=== PATIENT | male | born 1965 | race Caucasian/White ===

== ENCOUNTER 2017-06-11 11:17 | Observation (INO) | payer BC ==
[~2017-06-11] VITALS: Ht 177.8 cm; Wt 122.5 kg
--- NOTE | ~2017-06-11 | HP ---
History And Physical [facility] [address] [place]. [address] NAME: AGUSTIN CONTRERAS : 61 STATUS : ADM Isaías PAT#: [id number] AGE: 51 ADM/REG DATE : 06/11/17 MR#: [id number] REPORT SERV DATE: 06/11/17 DICTATED BY: SUNSHINE SALCIDO DATE: 06/11/17 REPORT STATUS : Draft TRANSCRIBED BY: MODL DATE: 06/11/17 DATE OF ADMISSION: 06/11/2017 PRIMARY CARE PHYSICIAN: Dr. Eb Bearden. PRIMARY MUSEUM EXHIBIT TECHNICIAN: Dr. Edvin Bernard. CHIEF COMPLAINT: Chest pain. HISTORY OF PRESENT ILLNESS: This is a very pleasant 51-year-old male with history of Sumner disease, obstructive sleep apnea, hypothyroidism, chronic kidney disease, Adrian syndrome, GERD, and hyperlipidemia, who states onset of chest pain last evening. He describes having some abdominal cramping and diarrhea and then later in the evening developing some very brief spasmodic-like chest pain to the mid chest. These occurred several times over the course of the evening. He describes them as very brief, lasting seconds, with no accompanying nausea, diaphoresis, or shortness of breath. There were no associated palpitations or dizziness. This morning when the chest pain recurred and then kept happening, he went to his primary care physician and they advised him to come to our emergency department for further evaluation. He has received a full-dose aspirin and is being admitted to chest pain observation. Currently he is chest pain-free but during the interview he states another spasmodic chest pain occurring. The patient denies personal history for IL, DVT, CVA, or PE. Denies any recent fever, cough, or chills. Occasional edema to the lower extremities. He is currently on an antibiotic for a sinus infection. MEDICAL HISTORY: 1. Obstructive sleep apnea, noncompliant with CPAP therapy. 2. Hypothyroidism. 3. GERD. 4. Mixed hyperlipidemia. 5. Sumner disease, status post adrenalectomy. 6. Adrian syndrome. 7. Low testosterone. 8. CKD 3, followed by Dr. Edvin Bernard. SURGICAL HISTORY: 1. Tonsillectomy. 2. LASIK eye surgery. 3. Adrenalectomy. 4. Pituitary tumor removed x2. HOME MEDICATIONS: Florinef 0.1 mg p.o. daily. Protonix 40 daily. Synthroid 112 mcg daily. Pravastatin 10 daily. Doxycycline 100 mg p.o. b.i.d. x14 days. Vitamin D 1000 units daily. Hydrocortisone 5 mg daily. Aspirin enteric-coated 81 mg daily. Testosterone injection 1 dose IM every 14 days. Hydrocortisone 40 to 60 mg twice a day as needed. Compound nasal History And Physical [facility] [address] [place]. [address] NAME: AGUSTIN CONTRERAS : 61 STATUS : ADM Isaías PAT#: [id number] AGE: 51 ADM/REG DATE : 06/11/17 MR#: [id number] REPORT SERV DATE: 06/11/17 DICTATED BY: SUNSHINE SALCIDO DATE: 06/11/17 REPORT STATUS : Draft TRANSCRIBED BY: SENTHLI DATE: 06/11/17 spray b.i.d. Protonix 40 mg every evening p.r.n. indigestion. ALLERGIES: NO KNOWN DRUG ALLERGIES. SOCIAL HISTORY: The patient is , at bedside. He is a business class 1 owner operator. He denies history of smoking or illicit drug use. Consumes perhaps 2 alcoholic beverages per week. FAMILY HISTORY: Negative for premature cardiovascular disease among his first-degree relatives. REVIEW OF SYSTEMS: Negative except as indicated above. PHYSICAL EXAMINATION: VITAL SIGNS: Blood pressure 135/83, heart rate 87, temperature 97.2, and pulse oximetry 97% on room air. GENERAL: Well developed, well nourished, in no acute distress HEENT: Anicteric. Normal EOM. Head normocephalic. PERRLA, no xanthelasma. NECK: Supple. No JVD. Carotids normal without bruits. LUNGS: Clear to auscultation bilaterally anterior and posterior. Respirations even and unlabored. CARDIAC: S1, S2 regular rate and rhythm. No murmurs, rubs, or gallops. No chest wall tenderness. ABDOMEN: Normal bowel sounds. Soft and nontender to palpation. No masses or organomegaly. EXTREMITIES: No peripheral edema. DP/PT and radial pulses palpable bilaterally. No clubbing or cyanosis. SKIN: Warm and dry. Normal turgor. No pallor or cyanosis. MUSCULOSKELETAL: Moving all extremities x4. Normal muscle strength. NEURO/PSYCH: Alert and oriented with appropriate affect. LABORATORY DATA: Sodium 136, potassium 4.0, BUN 16, creatinine 1.6 with baseline on record 1.5 to 1.9. White blood count 11.7, hemoglobin 14.3, and hematocrit 46.0. Troponin less than 0.02. Chest x-ray shows no acute cardiopulmonary abnormalities. EKG interpreted by myself indicates normal sinus rhythm with no ischemic changes. ASSESSMENT AND PLAN: 1. Midsternal chest pain in this 51-year-old male with cardiovascular risk factors of hyperlipidemia. His initial presentation is negative for acute coronary syndrome and his chest pains are somewhat atypical. We will plan to admit him to the chest pain observation unit and monitor on telemetry in the event that his symptoms are being produced by PVCs. Also plan for serial cardiac enzymes and if these remain negative, proceed with a nuclear stress test in the morning. If stress testing low risk, we will discharge home with followup with his primary care physician scheduled in the next one to two weeks. If no ischemia on stress testing, question whether the patient is having some gastritis related to the doxycycline that he is on. 2. Mixed hyperlipidemia. On statin therapy. We will continue. 3. Sumner disease, well-maintained and follows up with aviation maintenance technician, both locally as History And Physical [address] [address] NAME: AGUSTIN CONTRERAS : 61 STATUS : ADM Isaías PAT#: [id number] AGE: 51 ADM/REG DATE : 06/11/17 MR#: [id number] REPORT SERV DATE: 06/11/17 DICTATED BY: SUNSHINE SALCIDO DATE: 06/11/17 REPORT STATUS : Draft TRANSCRIBED BY: SENTHIL DATE: 06/11/17 well as at [place]. Continue home steroid doses. 4. Obstructive sleep apnea, noncompliant with CPAP therapy as the patient finds the mask very uncomfortable. I have counseled the patient to resume CPAP use to decrease cardiovascular risks. FOREST/SENTHIL Sunshine Salcido NP / [id number] CC: Abbey Elam, MSN, [employer] SEWER-BC
[~2017-06-11 11:17] MED LIST: ACIPHEX PO; ASAB PO; CITRUCEL500 MG PO; CORTEF20 MG PO; CORTEF5 PO; CRESTOR5 MG PO; DEPO-TESTOS200 MG/ML SC; DHE1 OR; FLORINEF0.1 MG PO; LEVOTHYROXIN112 MCG PO; LEVOTHYROXIN125 MCG PO; LEVOXYL100 MCG PO; MULTIPLE VIT PO; NEXIUM40 PO; P1 PO; PRAV10 PO; PRIN5 PO; PROTONIX PO; TESTOST CYP100 MG/ML IM; VITAMIN D31000 UNIT PO; [UNRECOGNIZED DRUG - OTHER] PO; [UNRECOGNIZED DRUG - OTHER] SQ
[2017-06-11 11:52] LABS: BASOPHILS 0.2 %; BASOPHILS ABSOLUTE 0.02 10/3/uL (0.0-0.16); EOSINOPHILS 0.1 %; EOSINOPHILS ABSOLUTE 0.01 10/3/uL (0.0-0.53); HEMOGLOBIN 14.3 g/dL (13.6-17.8); IMMATURE GRANULOCYTES 0.3 %; IMMATURE GRANULOCYTES ABSOLUTE 0.03 10/3/uL (0.0-0.11); LYMPHOCYTES 10.6 %; LYMPHOCYTES ABSOLUTE 1.25 10/3/uL (0.67-4.30); MEAN CORPUS HGB CONC 31.1 g/dL (32.0-36.0); MONOCYTES 8.9 %; MONOCYTES ABSOLUTE 1.04 10/3/uL (0.21-1.20); NEUTROPHILS 79.9 %; NEUTROPHILS ABSOLUTE 9.39 10/3/uL (2.02-8.40); PLATELET COUNT 282 10/3/uL (150-400); RBC DISTRIBUTION WIDTH 18.2 % (12.0-16.0); RED CELL COUNT 6.22 10/6/uL (4.7-6.1)
[2017-06-11 11:53] LABS: ER CBC TAT 0 Hrs 05 Mins; MANUAL DIFF NO %; WHITE BLOOD CELLS 11.7 10/3/uL (4.5-10.5)
[2017-06-11 12:01] LABS: INTERNATIONAL NORMAL RATI 1.1 UNITS (-); PARTIAL THROMBO TIME 28.1 SEC (22.5-37.2)
[2017-06-11 12:08] LABS: BUN (BLOOD UREA NITROGEN) 16 MG/DL (6-23); CHEST PAIN PROFILE TAT 0 Hrs 20 Mins; CHLORIDE, SERUM 100 MMOL/L (96-112); CO2 (CARBON DIOXIDE) 29 MMOL/L (24-34); CREATININE 1.66 MG/DL (0.70-1.30); GFR AFRICAN AMERICAN 54 ML/MIN (>=60); GFR NON AFRICAN AMERICAN 46 ML/MIN (>=60); GLUCOSE, SERUM 127 MG/DL (60-99); SODIUM, SERUM 136 MMOL/L (135-148); TROPONIN I <0.02 NG/ML (<0.05)
[2017-06-11 12:09] LABS: CALCIUM, SERUM 10.5 MG/DL (8.5-10.4)
[2017-06-11] MEDS ORDERED: PROTONIX PO ×2 (15:45→15:59)
[2017-06-11] MEDS ORDERED: FLORINEF0.1 MG PO (15:45)
[2017-06-11] MEDS ORDERED: PRAV10 PO (15:46)
[2017-06-11] MEDS ORDERED: SYN112 PO (15:46)
[2017-06-11] MEDS ORDERED: VITAMIN D1000 UNI1 PO (15:47)
[2017-06-11] MEDS ORDERED: MONODOX100 MG PO (15:47)
[2017-06-11] MEDS ORDERED: CORTEF5 PO (15:48)
[2017-06-11] MEDS ORDERED: TESTOSTERONE INJECT IM (15:50)
[2017-06-11] MEDS ORDERED: HALF81 PO (15:50)
[2017-06-11] MEDS ORDERED: CORTEF20 MG PO (15:53)
[2017-06-11] MEDS ORDERED: COMPOUND NAS (15:55)
== END 2017-06-12 12:54 | disposition home or self-care (01) ==
LOC: ER 11:17 → CDU1 15:50 → CDU2 15:50
PROVIDERS: Hospitalist
DX: R07.2 Precordial pain (principal); E78.2 Mixed hyperlipidemia; G47.33 Obstructive sleep apnea (adult) (pediatric); E03.9 Hypothyroidism, unspecified; K21.9 Gastro-esophageal reflux disease without esophagitis; E27.1 Primary adrenocortical insufficiency; E24.1 Nelson's syndrome; I24.9 Acute ischemic heart disease, unspecified; N18.3 Chronic kidney disease, stage 3 (moderate); Z98.890 Other specified postprocedural states; Z79.899 Other long term (current) drug therapy
CPT/HCPCS: 71020; 78452; 80048; 83735; 84484; 85025; 85610; 85730; 93005; 93017; 99285; A9270-GY; A9502; G0378